=== PATIENT | male | born 1995 | race Two or more races ===

== ENCOUNTER 2023-10-15 11:21 | Outpatient (REF) | payer MEDICAID, SELFPAY ==
[2023-10-15 14:21] LABS: Alanine Aminotransferase 16 U/L (0-40); Albumin Level 4.6 g/dL (3.5-5.0); Alkaline Phosphatase 91 U/L (39-117); Anion Gap 15 (12-20); Aspartate Amino Transferase 13 U/L (5-37); Blood Urea Nitrogen 11 mg/dL (9-16); Calcium 10.1 mg/dL (8.4-10.2); Carbon Dioxide 26 mmol/L (22-29); Chloride 101 mmol/L (96-108); Estimated Glomerular Filt Rate > 60; Glucose Random 305 mg/dL (60-115); Sodium 138 mmol/L (135-145); Total Protein 7.4 g/dL (6.5-8.0)
[2023-10-15 14:27] LABS: Creatinine Urine 81.06 mg/dL; Microalbum/Creatinine Ratio Ur 20.9 ug/mg cr (<30)
[2023-10-16 08:16] LABS: HBc Num1 0.08 S/CO (0.00-0.79); Hepatitis B Core Antibody Nonreactive (Nonreactive)
[2023-10-16 17:28] LABS: Hepatitis B Surface Ab Qnt <5 mIU/mL (> OR = 10)
== END 2023-10-15 11:22 | disposition home or self-care (01) ==
LOC: HO.HHCL 11:21
PROVIDERS: Visit Provider Family Medicine
DX: E10.65 Type 1 diabetes mellitus with hyperglycemia (principal); Z01.84 Encounter for antibody response examination
CPT/HCPCS: 36415; 80053; 82043; 82570; 86317; 86704

== ENCOUNTER 2024-09-27 10:53 | Outpatient (REF) | payer MEDICAID, SELFPAY ==
[2024-09-27 11:42] LABS: Estimated Average Glucose 335 mg/dL; Hemoglobin A1C 510.3837 umol/L; Hemoglobin A1c % 13.3 % (<6.0); Total Hemoglobin (HGBA1C) 4174.2239 umol/L
--- OUTSIDE RECORDS SUMMARY | 2024-09-27 12:18 | XMS_ITS | Encounter Summary ---
Author Organization [employer] Address [address] [facility] [address] [place] [address] Care Team Providers Care Aerial Advertiser Name Role Phone Dulce Borja MD Primary Care Provider [phone] Lala Patel RN Unavailable [phone] Encounter Details Date Type Department Care Team (Late st Contact Info) Description 11/16/2023 Orders Only [facility] [address], [place] [phone] Dulce Borja MD [address] [place], [place] [phone] Social History Tobacco Use Types Packs/Day Years Used Date Smoking Tobacco: Every Day Cigarettes Smokeless Tobacco: Never Depression Answer Date Recorded Patient Health Questionnaire-9 Score 9 10/15/2023 Patient Health Questionnaire-9 Score 9 10/15/2023 Last PHQ-9: Questionnaire Data Not on file 0 10/15/2023 Housing Stability Answer Date Recorded What is your housing situation today? I do not have housing (Staying with others, in a hotel, in a penitentiary, living outside on the street, on a beach, in a car, or in a park 10/02/[address] you li ve. Do you have problems with any of the following? I am not sure 10/02/2023 Food Insecurity Answer Date Recorded Within the past 12 months, y ou worried that your food would run out before you got money to buy more: Sometimes True 2023 Within the past 12 months,th e food you bought just didn't last and you didn't have enough money to get more: Sometimes True 10/02/2023 Transportation Answer Date Recorded In the past 12 months, has l ack of transportation kept you from medical appts, meetings, work or from getting things needed for daily living? No 10/02/2023 Utilities Answer Date Recorded In the past 12 months, has t he electric, gas, oil or water company threatened to shut off services in your home? No 10/02/2023 Depression Answer Date Recorded Patient Health Questionnaire-2 Score 3 10/15/2023 Sex and Gender Information Value Date Recorded Sex Assigned at Male 10/15/2023 9:13 AM EDT Legal Sex Male 11:21 AM EDT Gender Identity Male 10/15/2023 9:13 AM EDT Sexual Orientation Straight 10/15/2023 9: 13 AM EDT documented as of this encounter Plan of Treatment Upcoming Encounters Date Type Department Care Team (Late st Contact Info) Description 12/06/2024 3:30 PM EDT Office Visit [facility] [address] [place] [address] Dulce Borja MD [address] [place] [address] documented as of this encounter Visit Diagnoses Not on filedocumented in this encounter Additional Health Concerns Assessment Noted Time PHQ-9 Depression Total Score: 9 10/15/19 24 11:38 AM EDT documented as of this encounter Care Teams Aerial Advertiser Relationship Specialty Start Date End Date Dulce Borja MD [address] [place] [address] PCP - General Family Medicine 10/15/23 Lala Patel RN [address] [place] [phone] Assistant Food Service DirectorTrimmer Buffing Wheel 02/02/24 documented as of this encounter
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
--- OUTSIDE RECORDS SUMMARY | 2024-09-27 12:18 | XMS_ITS ---
Author Organization [facility] Address [address], [place] [phone] Care Team Providers Care Dairy Department Manager Name Role Phone No, PCP Primary Care Provider Danitza Beth Unavailable [phone] REASON FOR VISIT Apply for [place] [employer] Insurance Encounters Encounter Location Date Provider Diagnosis [facility] [address] [place] [address] 09/22/2024 Danitza Torres Plan Of Treatment No Information Progress Notes * Jackson CHAVISDOB:[birth year] (29 yo M)Acc No.[id number]:09/22/2024 Case Management New Patient:?CHAVISJackson Provider:?Danitza Torres :1995???Age:29 Y???Sex:Male Jose e:09/22/2024 Address:[address] [place], [place] [id number] Pcp:PCP No Subjective: * Chief Complaints: * ???1. Apply for [employer] Insurance. Objective: Assessment: Plan: * Treatment: * Images: Billing Information: * Visit Code:? * Procedure Codes:? Care Plan Details* * Electronic signature of Catalina Lott on 09/27/2024 at 12:18 PM EDT Sign off status: Pending * Provider:Kala Torres Date:?09/22/2024 Generated for Gaetano barger/Ton/Parviz on:?09/27/2024 12:18 PM EDT
--- OUTSIDE RECORDS SUMMARY | 2024-09-27 12:18 | XMS_ITS | Encounter Summary ---
Author Organization [employer] Address [address] [facility] 7t [place] [address] Care Team Providers Care Vp Analysis Name Role Phone Dulce Borja MD Primary Care Provider [phone] Lala Patel RN Unavailable [phone] Reason for Referral * Consultation (Routine) - Pending Review Specialty Diagnoses / Procedures Referred By Contac t Referred To Contact Pharmacy Diagnoses Type 1 diabetes mellitus with hyperglycemia (CMS/HCC) Dulce Borja MD [address] [place] [address] Phone: tel: fax: Referral ID Status Reason Start Date Expiration Date Visits Requested Visits Authorized [id number] Pending Review Consult and Treat 02/17/2024 02/16/2025 6 6 Encounter Details Date Type Department Care Team (Late st Contact Info) Description 02/17/2024 Orders Only [facility] [address] [place] [phone] Dulce Borja MD [address], [place] [phone] Type 1 diabetes mellitus with hyperglycemia (CMS/HCC) (Primary Dx) Social History Tobacco Use Types Packs/Day Years Used Date Smoking Tobacco: Every Day Cigarettes Passive Smoke Exposure: Never Smokeless Tobacco: Never Alcohol Use Standard Drinks/Week Comments Never 0 (1 standard drink = 0.6 oz pur e alcohol) Depression Answer Date Recorded Patient Health Questionnaire-9 Score 0 01/25/2024 Patient Health Questionnaire-9 Score 0 01/25/2024 Last PHQ-9: Questionnaire Data Not on file 0 01/25/2024 Housing Stability Answer Date Recorded What is your housing situation today? I do not have housing (Staying with others, in a hotel, in a snf, living outside on the street, on a [...] Answer Date Recorded Patient Health Questionnaire-2 Score 0 01/25/2024 Sex and Gender Information Value Date Recorded Sex Assigned at Male 10/15/2023 9:13 AM EDT Legal Sex Male 11:21 AM EDT Gender Identity Male 10/15/2023 9:13 AM EDT Sexual Orientation Straight 10/15/2023 9: 13 AM EDT documented as of this encounter Plan of Treatment Upcoming Encounters Date Type Department Care Team (Late st Contact Info) Description 12/06/2024 3:30 PM EDT Office Visit [facility] [address] [place] [address] Dulce Borja MD [address] [place] [address] Scheduled Referrals Name Type Priority Associated Diagnoses Orde r Schedule Referral to Pharmacy CDTM Outpatient Referral Routine Type 1 diabetes mellitus with hyperglycemia (CMS/HCC) Ordered: 02/17/2024 documented as of this encounter Visit Diagnoses Diagnosis Type 1 diabetes mellitus with hyperglycemia (CMS/HCC)- Primary documented in this encounter Additional Health Concerns Assessment Noted Time PHQ-9 Depression Total Score: 0 01/25/20 4:07 PM EDT documented as of this encounter Care Teams Vp Analysis Relationship Specialty Start Date End Date Dulce Borja MD [address] [place] [address] PCP - General Family Medicine 10/15/23 Lala Patel RN [address] [place] [phone] Manager FrontContent Architect 02/02/24 documented as of this encounter
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
--- OUTSIDE RECORDS SUMMARY | 2024-09-27 12:18 | XMS_ITS | Encounter Summary ---
Author Organization [employer] Address [address] [facility] 7t [place] [address] Care Team Providers Care Regrinder Operator Name Role Phone Dulce Borja MD Primary Care Provider [phone] Lala Patel RN Unavailable [phone] Reason for Visit * Reason Onset Date Comments Prior Authorization 11/05/2023 Encounter Details Date Type Department Care Team (Late st Contact Info) Description 11/05/2023 Telephone [facility] [address] [place], [place] [phone] Dulce Borja MD [address] [place], [place] [phone] Prior Authorization Social History Tobacco Use Types Packs/Day Years [...] AM EDT documented as of this encounter Miscellaneous Notes * Telephone Encounter - Ila Hawkins - 11/05/2023 3:52 PM EDT Please see message below and advise if agree with PA. Thank you * Telephone Encounter - Carloz Hua - 11/05/2023 10:33 AM EDT Tc from the patients sister calling to report the medication oxyCODONE (Oxaydo) 5 MG immediate release tablet requires a PA documented in this encounter Plan of Treatment Upcoming Encounters Date Type Department Care Team (Late st Contact Info) Description 12/06/2024 3:30 PM EDT Office Visit [facility] [address] [place] [address] Dulce Borja MD [address] [place] [address] documented as of this encounter Visit Diagnoses Not on filedocumented in this encounter Additional Health Concerns Assessment Noted Time PHQ-9 Depression Total Score: 9 10/15/19 24 11:38 AM EDT documented as of this encounter Care Teams Regrinder Operator Relationship Specialty Start Date End Date Dulce Borja MD [address] [place] [address] PCP - General Family Medicine 10/15/23 Lala Patel RN [address] [place] [address] Can RunnerWet Washer Machine 02/02/24 documented as of this encounter
--- OUTSIDE RECORDS SUMMARY | 2024-09-27 12:18 | XMS_ITS | Encounter Summary ---
Author Organization [employer] Address [address] [facility] 7t [place] [address] Care Team Providers Care New Media Strategist Name Role Phone Dulce Borja MD Primary Care Provider [phone] Lala Patel RN Unavailable [phone] Reason for Visit * Reason Comments Med Refill Encounter Details Date Type Department Care Team ([facility] st Contact Info) Description 08/09/2024 Refill [facility] [address] [place], [place] [phone] Jimmie Peter MD [address] [place], [place] [phone] Alcohol use disorder, severe, dependence (CMS/HCC) Social History Tobacco Use Types Packs/Day Years Used Date Smoking Tobacco: Every Day Cigarettes Passive Smoke Exposure: Never Smokeless Tobacco: Never Alcohol Use Standard Drinks/Week Comments Yes 0 [...] with others, in a hotel, in a fpc, living outside on the street, on a [...] Description 12/06/2024 3:30 PM EDT Office Visit [facility] [address] [place] [address] Dulce Borja MD [address] [place] [address] documented as of this encounter Visit Diagnoses Diagnosis Alcohol use disorder, severe, dependence (CMS/HCC) documented in this encounter Additional Health Concerns Assessment Noted Time PHQ-9 Depression Total Score: 4 05/16/20 24 4:05 PM EST documented as of this encounter Care Teams New Media Strategist Relationship Specialty Start Date End Date Dulce Borja MD [address] [place] [address] PCP - General Family Medicine 10/15/23 Lala Patel RN [address] [place] [address] Business Liaison ManagerDirect Support Professional Caregiver 02/02/24 documented as of this encounter
--- OUTSIDE RECORDS SUMMARY | 2024-09-27 12:18 | XMS_ITS | Patient Health Record ---
Author Organization [facility] Address [address] [place], [place] [phone] Care Team Providers Care All Terrain Vehicle Racer Name Role Phone No, PCP Primary Care Provider Danitza Beth Unavailable [phone] Reason For Referral No Information Encounters Encounter Location Date Provider Diagnosis [facility] [address] [place] [address] 09/22/2024 Danitza Torres Plan Of Treatment No Information Insurance Providers Payer Name Payer Address Payer Phone Subscriber Number Group Number Insured Name Patient Relationship to Insured Coverage Start Date Coverage End Date Insurance Pending [address] [place] [phone] Jackson Michaels Self - patient is the insured
--- OUTSIDE RECORDS SUMMARY | 2024-09-27 12:18 | XMS_ITS | Clinical Summary ---
Author Organization [facility] Address [address] [place] [address] Care Team Providers Care Mineral Technologist Name Role Phone Unavailable Primary Care Provider Unavailabl e Social History Tobacco Use Types Packs/Day Years Used Date Smoking Tobacco: Never Assessed Sex and Gender Information Value Date Recorded Sex Assigned at Not on file Legal Sex Male 6:15 AM EST Gender Identity Not on file Sexual Orientation Not on file Plan of Treatment Health Maintenance Due Date Last Done Comments DTaP,Tdap,and Td Vaccines (1 - Tdap) 2012 Hepatitis B Vaccines (1 of 3 - 19+ 3-dose series) 2012 COVID-19 Vaccine ( - 2023-2 5 season) 2024 Depression Screening 02/25/2024 HIV Screening 02/25/2024 Hepatitis C Screening 02/25/2024 Social Influencers of Health Screening 02/25/2024 Influenza Vaccine (Season Ended) 2025 HIB Vaccines Aged Out No longer eligi ble based on patient's age to complete this topic HPV Vaccines Aged Out No longer eligi ble based on patient's age to complete this topic Hepatitis A Vaccines Aged Out No long er eligible based on patient's age to complete this topic IPV Vaccines Aged Out No longer eligi ble based on patient's age to complete this topic MMR Vaccines Aged Out No longer eligi ble based on patient's age to complete this topic Meningococcal ACWY Vaccine Aged Out N o longer eligible based on patient's age to complete this topic Meningococcal B Vaccine Aged Out No l onger eligible based on patient's age to complete this topic Pneumococcal Vaccine: Pediat rics (0 to 5 Years) and At-Risk Patients (6 to 64 Years) Aged Out No longer eligible b ased on patient's age to complete this topic RSV Immunization Patients Un carli 20 months Aged Out No longer eligible b ased on patient's age to complete this topic Varicella Vaccines Aged Out No longer eligible based on patient's age to complete this topic
--- OUTSIDE RECORDS SUMMARY | 2024-09-27 12:18 | XMS_ITS | Encounter Summary ---
Author Organization [employer] Address [address] [facility] [address] [place] [address] Care Team Providers Care Hyster Machine Operator Name Role Phone Dulce Borja MD Primary Care Provider [phone] Lala Patel RN Unavailable [phone] Encounter Details Date Type Department Care Team (Late st Contact Info) Description 06/30/2024 Orders Only [facility] MEDICINE [address] [place], [place] [phone] Dulce Borja MD [address] [place], [place] [phone] Chronic pain of both hips (Primary Dx) Social History Tobacco Use Types [...] with others, in a hotel, in a halfway, living outside on the street, on a [...] Description 12/06/2024 3:30 PM EDT Office Visit [facility] MEDICINE [address] [place] [address] Dulce Borja MD [address] [place] [address] documented as of this encounter Visit Diagnoses Diagnosis Chronic pain of both hips- Primary documented in this encounter Additional Health Concerns Assessment Noted Time PHQ-9 Depression Total Score: 4 05/16/20 24 4:05 PM EST documented as of this encounter Care Teams Hyster Machine Operator Relationship Specialty Start Date End Date Dulce Borja MD [address] [place] [address] PCP - General Family Medicine 10/15/23 Lala Patel RN [address] [place] [address] Assembly HandJunior Mechanical Engineer 02/02/24 documented as of this encounter
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
[2024-09-27 12:35] LABS: Cholesterol 210 mg/dL (<200); HDL Cholesterol 59 mg/dL (>40); LDL Cholesterol Calculated 118 mg/dL (<100); Triglycerides 169 mg/dL (<150)
[2024-09-27 12:46] LABS: HBsAGNum1 0.24 S/CO (0.00-0.99); HIV AB/AG Nonreactive (Nonreactive); HIV Num 1 0.05 S/CO (0.00-0.99); Hepatitis B Surface Antigen Negative (Negative); ~HepC Num1 0.06 S/CO (0.00-0.79); ~Hepatitis C Antibody Nonreactive (Nonreactive)
[2024-09-27 12:48] LABS: Syphilis Screen Nonreactive (Nonreactive)
[2024-09-27 13:15] LABS: Reflex LDLD? No
== END 2024-09-27 10:54 | disposition home or self-care (01) ==
LOC: HO.HHCL 10:53
PROVIDERS: Visit Provider Family Medicine
DX: E10.65 Type 1 diabetes mellitus with hyperglycemia (principal); Z11.3 Encounter for screening for infections with a predominantly sexual mode of transmission
CPT/HCPCS: 36415; 80061; 83036; 86780; 86803; 87340; 87389

== ENCOUNTER 2024-10-05 10:24 | Outpatient (REF) | payer MEDICAID, SELFPAY ==
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
--- OUTSIDE RECORDS SUMMARY | 2024-10-05 11:54 | XMS_ITS | Patient Health Record ---
Author Organization [facility] Address [address] [place], [place] [phone] Care Team Providers Care Double Needle Stitcher Name Role Phone [facility] Unavailable Danitza Torres Unavailable [phone] Reason For Referral No Information Encounters Encounter Location Date Provider Diagnosis [facility] [address] [place] [address] 09/22/2024 Danitza Torres Plan Of Treatment No Information Insurance Providers Payer Name Payer Address Payer Phone Subscriber Number Group Number Insured Name Patient Relationship to Insured Coverage Start Date Coverage End Date [place] Medicaid C3 [address] [place], [place] [id number] Jackson Michaels Self - patient is the insured 5
--- OUTSIDE RECORDS SUMMARY | 2024-10-05 11:54 | XMS_ITS | Encounter Summary ---
Author Organization [employer] Address [address] [facility] 7 [place] [address] Care Team Providers Care Customer Support Advisor Name Role Phone Dulce Borja MD Primary Care Provider Lala Patel RN Unavailable [phone] Reason for Visit * Reason Comments Med Refill Encounter Details Date Type Department Care Team (Late st Contact Info) Description 08/09/2024 Refill [facility] MEDICINE [address] [place], [place] [phone] Jimmie Peter MD [address] [place], [place] [phone] Alcohol use disorder, severe, dependence (CMS/HCC) Social [...] Description 12/06/2024 3:30 PM EDT Office Visit [facility] MEDICINE [address] [place] [address] Dulce Borja MD [address] [place] [address] documented as of this encounter Visit Diagnoses Diagnosis Alcohol use disorder, severe, dependence (CMS/HCC) documented in this encounter Additional Health Concerns Assessment Noted Time PHQ-9 Depression Total Score: 4 05/16/20 24 4:05 PM EST documented as of this encounter Care Teams Customer Support Advisor Relationship Specialty Start Date End Date Dulce Borja MD [address] [place] [address] PCP - General Family Medicine 10/15/23 Lala Patel RN [address] [place] [address] Data KeyerPower Operator 02/02/24 documented as of this encounter
--- OUTSIDE RECORDS SUMMARY | 2024-10-05 11:54 | XMS_ITS | Encounter Summary ---
Author Organization [employer] Address [address] [facility] 7t [place] [address] Care Team Providers Care Assistant Store Manager Sales Name Role Phone Dulce Borja MD Primary Care Provider Lala Patel RN Unavailable [phone] Encounter Details Date Type Department Care Team (Late st Contact Info) Description 11/16/2023 Orders Only [facility] MEDICINE [address] [place], [place] [phone] Dulce Borja MD [address] [place], [place] [phone] Social History Tobacco Use Types Packs/Day Years [...] with others, in a hotel, in a alf, living outside on the street, on a [...] Description 12/06/2024 3:30 PM EDT Office Visit [facility]ICINE [address] [place] [phone] Dulce Borja MD [address] [place] [address] documented as of this encounter Visit Diagnoses Not on filedocumented in this encounter Additional Health Concerns Assessment Noted Time PHQ-9 Depression Total Score: 9 10/15/19 24 11:38 AM EDT documented as of this encounter Care Teams Assistant Store Manager Sales Relationship Specialty Start Date End Date Dulce Borja MD [address] [place] [address] PCP - General Family Medicine 10/15/23 Lala Patel RN [address] [place] [address] Physical Security EngineerClinical Data Programmer 02/02/24 documented as of this encounter
--- OUTSIDE RECORDS SUMMARY | 2024-10-05 11:54 | XMS_ITS | Encounter Summary ---
Author Organization [employer] Address [address] [facility] 7 [place] [address] Care Team Providers Care Talent Management Manager Name Role Phone Dulce Borja MD Primary Care Provider [phone] Lala Patel RN Unavailable [phone] Reason for Visit * Reason Onset Date Comments Prior Authorization 11/05/2023 Encounter Details Date Type Department Care Team (Late st Contact Info) Description 11/05/2023 Telephone [facility] MEDICINE [address] [place], [place] [phone] Dulce Borja MD [address] [place], [place] [phone] Prior Authorization Social History Tobacco Use Types [...] with others, in a hotel, in a assisted, living outside on the street, on a [...] Description 12/06/2024 3:30 PM EDT Office Visit [facility] MEDICINE [address] [place] [address] Dulce Borja MD [address] [place] [address] documented as of this encounter Visit Diagnoses Not on filedocumented in this encounter Additional Health Concerns Assessment Noted Time PHQ-9 Depression Total Score: 9 10/15/19 24 11:38 AM EDT documented as of this encounter Care Teams Talent Management Manager Relationship Specialty Start Date End Date Dulce Borja MD [address] [place] [address] PCP - General Family Medicine 10/15/23 Lala Patel RN [address] [place] [address] District Commercial SuperintendentExhaust Emissions Inspector 02/02/24 documented as of this encounter
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
--- OUTSIDE RECORDS SUMMARY | 2024-10-05 11:54 | XMS_ITS | Clinical Summary ---
Author Organization [facility] [employer] [facility] ity Address [address] [place] [address] Care Team Providers Care Poultry Farmer Meat Name Role Phone Unavailable Primary Care Provider [...]
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
--- OUTSIDE RECORDS SUMMARY | 2024-10-05 11:54 | XMS_ITS | Encounter Summary ---
Author Organization [facility] Address [address] [place] [address] Care Team Providers Care Executive Producer Name Role Phone Dulce Borja MD Primary Care Provider [phone] Lala Patel RN Unavailable [phone] Reason for Referral * Consultation (Routine) - Closed Specialty Diagnoses / Procedures Referred By Contac t Referred To Contact Pharmacy Diagnoses Type 1 diabetes mellitus with hyperglycemia (CMS/HCC) Dulce Borja MD [address] [place] [address] Phone: tel: fax: Referral ID Status Reason Start Date Expiration Date V isits Requested Visits Authorized [id number] Closed Consult and Treat 02/17/2024 02/16/2025 6 6 Encounter Details Date Type Department Care Team (Late st Contact Info) Description 02/17/2024 Orders Only [facility] [address] [place], [place] [phone] Dulce Borja MD [address], [place] [phone] Type 1 diabetes mellitus with hyperglycemia (CMS/HCC) [...] with others, in a hotel, in a residential, living outside on the street, on a [...] Description 12/06/2024 3:30 PM EDT Office Visit [facility] [address] [place] [address] Dulce Borja MD [address] [place] [address] Scheduled Referrals Name Type Priority Associated Diagnoses Orde r Schedule Referral to Pharmacy CDTM Outpatient Referral Routine Type 1 diabetes mellitus with hyperglycemia (CMS/HCC) Ordered: 02/17/2024 documented as of this encounter Visit Diagnoses Diagnosis Type 1 diabetes mellitus with hyperglycemia (CMS/HCC)- Primary documented in this encounter Additional Health Concerns Assessment Noted Time PHQ-9 Depression Total Score: 0 01/25/20 24 4:07 PM EDT documented as of this encounter Care Teams Executive Producer Relationship Specialty Start Date End Date Dulce Borja MD [address] [place] [address] PCP - General Family Medicine 10/15/23 Lala Patel RN [address] [place] [phone] Second RiggerReception Manager 02/02/24 documented as of this encounter
--- OUTSIDE RECORDS SUMMARY | 2024-10-05 11:55 | XMS_ITS | Encounter Summary ---
Author Organization [facility] Address [address] [place] [address] Care Team Providers Care Rac Specialist Name Role Phone Dulce Borja MD Primary Care Provider [phone] Lala Patel RN Unavailable [phone] Reason for Visit * Reason Onset Date Comments Appointment Request 10/03/2024 Encounter Details Date Type Department Care Team (Late st Contact Info) Description 10/03/2024 Telephone [facility] [address] [place] [address] Rosario Jarvis RN Appointment Request Social History Tobacco Use Types Packs/Day Years [...] with others, in a hotel, in a skilled nursing, living outside on the street, on a [...] encounter Miscellaneous Notes * Telephone Encounter - Rosario Jarvis RN - 10/03/2024 3:04 PM EDT Telephone call returned to patient in regards to below message. Patient got sensor and knows how touse it and does not want an appointment, patient state he knows how it works and it has been reallygood. Patient verbalized understanding and denied having any further questions or concerns at this time. Patient to follow up as needed. * Telephone Encounter - Rosario Jarvis RN - 10/03/2024 3:04 PM EDT ----- Message from Dulce Borja MD sent at 10/02/2024 5:51 PM EDT ----- Please check if he was able to get CGM and schedule CGM teaching appointment, if patient needs. documented in this encounter Plan of Treatment Upcoming Encounters Date Type Department Care Team (Late st Contact Info) Description 12/06/2024 3:30 PM EDT Office Visit [facility] [address] [place] [address] Dulce Borja MD [address] [place] [address] documented as of this encounter Visit Diagnoses Not on filedocumented in this encounter Additional Health Concerns Assessment Noted Time PHQ-9 Depression Total Score: 4 05/16/20 24 4:05 PM EST documented as of this encounter Care Teams Rac Specialist Relationship Specialty Start Date End Date Dulce Borja MD [address] [place] [address] PCP - General Family Medicine 10/15/23 Lala Patel RN [address] [place] [phone] Band Scroll Saw OperatorPhotographic Reproduction Technician 02/02/24 documented as of this encounter
--- OUTSIDE RECORDS SUMMARY | 2024-10-05 11:55 | XMS_ITS | Encounter Summary ---
Author Organization [facility] [employer] Address [address] [place] [address] Care Team Providers Care Sterilization Tech Name Role Phone Dulce Borja MD Primary Care Provider [phone] Laal Patel RN Unavailable [phone] Encounter Details Date Type Department Care Team (Late st Contact Info) Description 06/30/2024 Orders Only [facility] [address] [place], [place] [phone] Dulce Borja MD [address] [place], [place] [phone] Chronic pain of both hips (Primary Dx) [...] with others, in a hotel, in a senior living, living outside on the street, on a [...] PM EDT Office Visit [facility] [address] [place] [phone] Dulce Borja MD [address] [place] [phone] documented as of this encounter Visit Diagnoses Diagnosis Chronic pain of both hips- Primary documented in this encounter Additional Health Concerns Assessment Noted Time PHQ-9 Depression Total Score: 4 05/16/20 24 4:05 PM EST documented as of this encounter Care Teams Sterilization Tech Relationship Specialty Start Date End Date Dulce Borja MD [address] [place] [id number] PCP - General Family Medicine 10/15/23 Lala Patel RN [address] [place] [phone] Vp Product MarketingScience Tutor 02/02/24 documented as of this encounter
== END 2024-10-05 10:25 | disposition home or self-care (01) ==
LOC: HO.HHCX 10:24
PROVIDERS: Visit Provider Family Medicine
DX: M54.50 Low back pain, unspecified (principal); G89.29 Other chronic pain; R07.81 Pleurodynia; R09.1 Pleurisy
CPT/HCPCS: 71101; 72100

== ENCOUNTER → 2024-10-05 10:25 | Outpatient (BNV) | payer MEDICAID, SELFPAY | PROVIDERS: Visit Provider Radiology Diagnostic Radiology | DX: R07.89 Other chest pain (principal); M95.4 Acquired deformity of chest and rib; M54.50 Low back pain, unspecified | CPT/HCPCS: 71101; 72100 ==

== ENCOUNTER 2024-11-08 12:10 | Outpatient (AMB) | payer MEDICAID, SELFPAY ==
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
[2024-11-08 12:27] VITALS: BP 120/64; PULSE 95; O2SAT 98; BMI 23.2
[2024-11-08 12:39] LABS: Glucose, Whole Blood 389 mg/dL (60-115)
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
== END 2024-11-08 13:03 | disposition home or self-care (01) ==
LOC: HO.ENCR 12:11
PROVIDERS: PCP Family Medicine; Visit Provider Nurse Practitioner Adult Health
DX: E10.9 Type 1 diabetes mellitus without complications (principal)
CPT/HCPCS: 99204

== ENCOUNTER → 2024-11-08 12:10 | Outpatient (BNVA) | payer MEDICAID, SELFPAY | PROVIDERS: Visit Provider Nurse Practitioner Adult Health | DX: E10.9 Type 1 diabetes mellitus without complications (principal); F32.A Depression, unspecified; F41.9 Anxiety disorder, unspecified; F12.90 Cannabis use, unspecified, uncomplicated | CPT/HCPCS: 82947; 99212 ==

== ENCOUNTER 2024-11-23 08:09 | Outpatient (AMB) | payer MEDICAID, SELFPAY ==
--- OUTSIDE RECORDS SUMMARY | 2024-11-23 08:12 | XMS_ITS | Clinical Summary ---
[facility] Organization [facility] ity Address [address] [place] [address] Care Team Providers Care Leather Finisher Name Role Phone Unavailable Primary Care Provider [...] Influencers of Health Screening 02/25/2024 Influenza Vaccine (#1) 2025 HIB Vaccines Aged Out No longer [...] 5 Years) and At-Risk Patients (6 to 49 Years) Aged Out No longer eligible b ased on patient's age to complete this topic RSV Immunization Patients Un carli 20 months Aged Out No longer eligible b ased on patient's age to complete this topic Varicella Vaccines Aged Out No longer eligible based on patient's age to complete this topic
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
--- OUTSIDE RECORDS SUMMARY | 2024-11-23 08:12 | XMS_ITS | Patient Health Record ---
Author Organization [facility] Address [address], [place] [id number] Care Team Providers Care Adult Manager Name Role Phone [facility] Unavailable Danitza Torres Unavailable [phone] Reason For Referral No Information Encounters Encounter Location Date Provider Diagnosis [facility] [address] [place] [address] 09/22/2024 Danitza Torres Plan Of Treatment No Information Insurance Providers Payer Name Payer Address Payer Phone Subscriber Number Group Number Insured Name Patient Relationship to Insured Coverage Start Date Coverage End Date [place] Medicaid C3 [address] [place], [place] [id number] Jackson Michaels Self - patient is the insured 5
--- NOTE | 2024-11-23 09:11 | MHC.AMDMED ---
Intake Intake Visit Reasons: T1DM Emergency Medical Tech Required: No Accompanied by: Self / Same As Patient Allergies No Known Allergies Allergy (Verified 11/08/24 12:32) HPI Comprehensive Diabetes Asmnt Most Recent Diabetes Results: Microalb/Creat Ratio, (<30) 20.9 ug/mg cr 10/15/23 Cholesterol, (<200) 210 mg/dL H 09/27/24 HDL Cholesterol, (>40) 59 mg/dL 09/27/24 Triglycerides, (<150) 169 mg/dL H 09/27/24 Creatinine, (0.5-1.4) 0.85 mg/dL 10/15/23 BUN, (9-16) 11 mg/dL 10/15/23 Sodium, (135-145) 138 mmol/L 10/15/23 Potassium, (3.3-5.1) 4.0 mmol/L 10/15/23 Chloride, (96-108) 101 mmol/L 10/15/23 Carbon Dioxide, (22-29) 26 mmol/L 10/15/23 Calcium, (8.4-10.2) 10.1 mg/dL 10/15/23 AST, (5-37) 13 U/L 10/15/23 ALT, (0-40) 16 U/L 10/15/23 Total Protein, (6.5-8.0) 7.4 g/dL 10/15/23 Albumin, (3.5-5.0) 4.6 g/dL 10/15/23 PFSH Medical History (Updated 11/08/24 @ 13:15 by Dera Flores NP) Type 1 diabetes Hx of fracture of femur History of anxiety Hx of fracture of pelvis History of ADHD History of chronic pain Hx of type 1 diabetes mellitus Surgical History History of surgery Family History Father No problems noted. Mother No problems noted. Assessment & Plan Assessment & Plan (1) Type 1 diabetes: Code(s): E10.9 - Type 1 diabetes mellitus without complications Plan: Diabetes self-management education and support participation record Assessment/scale: 1= needs instructed? 2= needs review? 3= comprehend keep point? 4= demonstrates understanding/ competent? NC= Not Covered Topics Learning Objective: Initial visit Initial or post srvc Initial or post srvc Initial or post srvc Initial or post srvc Initial or post srvc Post srvc Comments Pre Edu-assessment/plan Outcome or reassess Outcome or reassess Outcome or reassess Outcome or reassess Outcome or reassess Outcome or reassess Diabetes pathophysiology 1 Healthy eating 1 Being active 1 Taking medication 1 Monitoring glucose 1 Acute complication 2 Chronic complicated 1 Lifestyle and healthy coping 1 Diabetes distress in support 1 ?Diabetes pathophysiology: ?Defined diabetes med identify own type of diabetes; list 3 options for treating diabetes Healthy eating: ?Described effect of type, amount and ?timing of food on blood glucose; list 3 methods for planning meal Being active: ?State effect of exercise on blood glucose level Taking medication: ?State effect of diabetes medications on diabetes; name diabetes medications taking, action and side effects Monitoring glucose: ?Identify recommended blood glucose targets and personal target Acute complication: ?List symptoms and treatment of hyper and hypoglycemia, DKA, sick day guidelines and guidelines for severe weather or situations of crisis and diabetes supply manage Chronic complication: ?To find the relationship of blood glucose levels to long-term complications of diabetes in screening and preventative measures Lifestyle and healthy coping: ?Described lifestyle and healthy coping strategies to rule out diabetes self-management Diabetes to stress and support: ?Recognize Diabetes to stress and be able to identified support options Learning objectives: The patient was provided with verbal and written education on the following topics as outlined below. The patient met all learning objectives and was able to verbalize understanding and provide teach back of education topics discussed . The patient was provided with the opportunity to ask questions and all questions were answered. Patient Assessment Assess patient education level/literacy/barriers, patient originally diagnosed with type 2 diabetes, but since has been diagnosed with type 1 diabetes. Patient lives with his , participates in meal planning and food shopping Patient's A1c on 09/27/2024 13.3% Patient is currently taking Tresiba 30 units daily Lispro before meals 2 to 3 times a day Patient questions/concerns, patient reports he is interested in learning how to carb count. Calculated insulin to carb ratio of 1-9 Correction factor 1-25 Target goal for glucose: 140 mg/dL What is Diabetes? Pathophysiology How the body produces and uses insulin Identify type of DM Risk factors Signs of Diabetes Brief overview of Diabetes Management Monitoring blood sugar Following a meal plan Regular exercise Maintaining a healthy weight Taking medication as needed Members of the care team (PCP, RN, MA, RD, CDE, postal service clerk) Blood glucose monitoring When/how often to test Target blood sugar ranges Patient brought Atiya 3 +sensor to today's visit Downloaded in set up, Atiya 3 rosy on patient's smart phone User name: Patient is e-mail Password:[email or web address] Sensor placed on the back of left arm Patient left visit with sensor in warmup Reviewed how to interpret trend arrows Discussed lag time between finger stick and sensor data.? Instructed patient the importance of having blood glucometer for backup testing if needed Reviewed delay of CGM from fingersticks Reminded Pt that if symptoms do not match sensor still needs to check fingersticks. Introduction to Nutrition Importance of healthy diet in managing DM Diet is personalized to individual preference Review patient?s regular diet/food preferences Who prepares meals/does food shopping/ Dining out?/ Barriers? How diet effects glucose Eating 3 balanced meals a day with small, healthy snacks between meals Review food groups Carbohydrates: What is a carbohydrate/Which food/food groups are considered carbohydrates Effect of carbohydrates on blood glucose Portion sizes Reading food labels Basic carb counting, setup Boluscalc rosy on Pt's iPhone Plate method Meal planning Recommendations: Follow plate method, consistent carbs and read nutritional labels. Smart Goal: Patient will identify foods in current meal plan that contain carbohydrate Educational Materials: The patient was provided with the following written educational materials: Planning Healthy Meals Handout Patient Response to instructions: Comprehension of Instructions: Fair Readiness to make changes: Contemplation How confident they feel about making changes: Fair Portions of this note were created using voice recognition software, please excuse any words or phrases that may have been misinterpreted. Patient Instructions: Include regular daily activity. ADA recommends 30 minutes of exercise 5 days a week. Weight loss talk to PCP or Vice President Of Academic Affairs before starting new plan. Test blood sugar as directed; Fasting and 2hpp largest meal. Watch trends in results. Utilize results and to assess how food, physical activity and medications affect blood sugar results. Bring glucometer or CGM to next visit. Be knowledgeable about diabetes medication, its action, side effects, efficacy, toxicity, prescribed dosage, appropriate timing and frequency of administration, effect of missed and delayed doses and instructions for storage, travel and safety. Problem solving techniques to monitor hypo/hyperglycemia episodes and treatments. Reduce risk reduction behaviors, smoking cessation, regular eye, foot and dental examinations. Coding Level of Care Code Est Pt Level 1 (78939) Diagnoses Type 1 diabetes E10.9
== END 2024-11-23 09:13 | disposition home or self-care (01) ==
LOC: HO.ENCR 08:09
PROVIDERS: Visit Provider Registered Nurse Diabetes Educator
DX: E10.9 Type 1 diabetes mellitus without complications (principal)

== ENCOUNTER → 2024-11-23 08:09 | Outpatient (BNVA) | payer MEDICAID, SELFPAY | PROVIDERS: Visit Provider Registered Nurse Diabetes Educator | DX: E10.9 Type 1 diabetes mellitus without complications (principal) | CPT/HCPCS: 99211 ==

== ENCOUNTER 2025-01-31 16:06 | Outpatient (AMB) | payer MEDICAID, SELFPAY ==
--- NOTE | 2025-01-31 16:46 | A.OFFVIS_ITS ---
Intake Intake Visit Reasons: 60 mins Food Processing Scientist Required: No Accompanied by: Self / Same As Patient Allergies No Known Allergies Allergy (Verified 11/08/24 12:32) HPI Comprehensive Diabetes Asmnt Most Recent Diabetes Results: 2 Microalb/Creat Ratio, (<30) 20.9 ug/mg cr 10/15/23 Cholesterol, (<200) 210 mg/dL H 09/27/24 HDL Cholesterol, (>40) 59 mg/dL 09/27/24 Triglycerides, (<150) 169 mg/dL H 09/27/24 Creatinine, (0.5-1.4) 0.85 mg/dL 10/15/23 BUN, (9-16) 11 mg/dL 10/15/23 Sodium, (135-145) 138 mmol/L 10/15/23 Potassium, (3.3-5.1) 4.0 mmol/L 10/15/23 Chloride, (96-108) 101 mmol/L 10/15/23 Carbon Dioxide, (22-29) 26 mmol/L 10/15/23 Calcium, (8.4-10.2) 10.1 mg/dL 10/15/23 AST, (5-37) 13 U/L 10/15/23 ALT, (0-40) 16 U/L 10/15/23 Total Protein, (6.5-8.0) 7.4 g/dL 10/15/23 Albumin, (3.5-5.0) 4.6 g/dL 10/15/23 PFSH Medical History (Updated 11/08/24 @ 13:15 by Drea Flores NP) Type 1 diabetes Hx of fracture of femur History of anxiety Hx of fracture of pelvis History of ADHD History of chronic pain Hx of type 1 diabetes mellitus Surgical History History of surgery Family History Father No problems noted. Mother No problems noted. Assessment & Plan Assessment & Plan (1) Type 1 diabetes: Code(s): E10.9 - Type 1 diabetes mellitus without complications Plan: Diabetes self-management education and support participation record Assessment/scale: 1= needs instructed? 2= needs review? 3= comprehend keep point? 4= demonstrates understanding/ competent? NC= Not Covered Topics Learning Objective: Initial visit Initial or post srvc Initial or post srvc Initial or post srvc Initial or post srvc Initial or post srvc Post srvc Comments Pre Edu-assessment/plan Outcome or reassess O utcome or reassess Outcome or reassess Outcome or reassess Outcome or reassess Outcome or reassess Diabetes pathophysiology 1 3 Healthy eating 1 2 Being active 1 3 Taking medication 1 2 Monitoring glucose 1 3 Acute complication 2 3 Chronic complicated 1 2 Lifestyle and healthy coping 1 Diabetes distress in support 1 ?Diabetes pathophysiology: ?Defined diabetes med identify own type of diabetes; list 3 options for treating diabetes Healthy eating: ?Described effect of type, amount and ?timing of food on blood glucose; list 3 methods for planning meal Being active: ?State effect of exercise on blood glucose level Taking medication: ?State effect of diabetes medications on diabetes; name diabetes medications taking, action and side effects Monitoring glucose: ?Identify recommended blood glucose targets and personal target Acute complication: ?List symptoms and treatment of hyper and hypoglycemia, DKA, sick day guidelines and guidelines for severe weather or situations of crisis and diabetes supply manage Chronic complication: ?To find the relationship of blood glucose levels to long- term complications of diabetes in screening and preventative measures Lifestyle and healthy coping: ?Described lifestyle and healthy coping strategies to rule out diabetes self-management Diabetes to stress and support: ?Recognize Diabetes to stress and be able to identified support options Pump Assessment: Type of DM: Type 1 Dx at age: 20 y/o Current Insulin Rx: MDI Patient takes insulin as prescribed: 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 checks BG Atiya 3+ with phone rosy Downloaded meter today-yes Patient? reports glycemic control as: poor Most recent Hgb A1C: 13.3% in September 2024, Pt has upcoming appt with Dr. Parsons will be due for next A1c Frequency of low BG: rarely Low BG treatment: Fruit juice Frequency of high BG: daily Does patient check Ketones? no, will reveiw with Pt at next education visit Has pt been on a pump in the past? no Reviewed insulin pump basics today with Patient. Explained pros and cons of insulin pumps. Showed pt various pumps, infusion sets, and cgms currently available. Reviewed need to wear pump 24/ and need to change infusion set every 3 days. Also stressed importance of frequent BG checks, 4x daily minimum or use pump that is integrated with CGM.? Patient demonstrated motivation for continued insulin pump education and understands the need to complete education prior to starting insulin pump for best outcome. Pt is interested in the OmniPod 5, he will need to transition to new sensor Reviewed the following: Insulin/Injectables (If applicable) * Storage/care of insulin?? * Injection sites? * Site rotation? * Onset, peak, duration * Drawing up insulin? * Injecting insulin/other injectables? * Sharps disposalContinuous blood glucose monitoring (if applicable) Hypoglycemia and Hyperglycemia * Signs and symptoms? * Causes?? * Treatment? * Preventing hypoglycemia? * When to seek medical attention Target Goals: * Blood glucose targets and how you feel when your blood glucose is in and out of your target ranges. * Monitoring and knowing your A1C. * What can make blood glucose go up and down and preventing high and low blood glucose. * Review of blood sugar targets in expected goal range and outside of expected goal range. * Problem solving and preventing hyper/hypoglycemia. * Sick day management of diabetes. * Using blood sugar results in decision making process in managing diabetes. ?Patient was receptive to information provided and participated in the discussion. Asked?appropriate questions and demonstrated good understanding of the topics discussed.? ? Carb Counting Basic Reviewed the basic principles of carbohydrate counting.? Insulin to carb ratio, and insulin sensitivity factor calculated based on rule of 450 for insulin to carb ratio, and rule of 1500 for insulin sensitivity factor. Instructed patient on the importance of accurate calculation of the amount of carbs per meal for optimal glucose control Reviewed how to calculate mealtime bolus with insulin to carb ratio Reviewed how to calculate correction dose with insulin sensitivity factor Patient's TDD estimate 50 units Insulin to Carbohydrate ratio:1:9 Correction factor:1:30 Correcting to 140 mg/dL Patient given healthy plate handout, for resource for carbohydrate counting Encourage patient to fill out food logs, estimating carbohydrates at meals, noting glucose number prior to meal, and how many units of insulin taken prior to meals Pt able to calculated needed insulin based on estimated carbohydrate content Instructed patient that there may need to be adjustment to insulin to carb ratio and sensitivity factor based on blood glucose trends. Portions of this note were created using voice recognition software, please excuse any words or phrases that may have been misinterpreted. Patient Instructions: Return carb counting work sheet to clinical systems educator Follow-up with clinical systems educator in 1 month Coding Level of Care Code Est Pt Level 1 (34217) Diagnoses Type 1 diabetes E10.9
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
--- OUTSIDE RECORDS SUMMARY | 2025-01-31 19:03 | XMS_ITS | Clinical Summary ---
[facility] Address [address] [place] [address] Care Team Providers Care Car Porter Name Role Phone Unavailable Primary Care Provider [...] of 3 - 19+ 3-dose series) 2012 HIV Screening 02/25/2024 Hepatitis C Screening 02/25/2024 Social Influencers of Health Screening 02/25/2024 Depression Screening 05/18/2024 COVID-19 Vaccine ( - 2023-2 5 season) 2025 Influenza Vaccine (#1) 2025 HIB Vaccines Aged [...]
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
--- OUTSIDE RECORDS SUMMARY | 2025-01-31 19:03 | XMS_ITS | Encounter Summary ---
Author Organization [employer] Address [address] [facility] 7t [place] [address] Care Team Providers Care Parts Designer Name Role Phone Dulce Borja MD Primary Care Provider [phone] Lala Patel RN Unavailable [phone] Ab Henderson RN Unavailable [phone] Olga Muse Unavailable Reason for Referral * Consultation (Routine) - Closed Specialty Diagnoses / Procedures Referred By Contvinnie t Referred To Contact Pharmacy Diagnoses Type 1 diabetes mellitus with hyperglycemia (CMS/HCC) Dulce Borja MD [address] [place] [address] Phone: tel: fax: Referral ID Status Reason Start Date Expiration Date V isits Requested Visits Authorized [id number] Closed Consult and Treat 02/17/2024 02/16/2025 6 6 Encounter Details Date Type Department Care Team (Late st Contact Info) Description 02/17/2024 Orders Only [facility] MEDICINE [address] [place], [place] [phone] Dulce Borja MD [address] [place], [place] [phone] Type 1 diabetes mellitus with hyperglycemia (CMS/HCC) [...] with others, in a hotel, in a care home, living outside on the street, on a [...] Description 02/28/2025 3:45 PM EDT Office Visit [facility] MEDICINE [address] [place], [place] [phone] Dulce Borja MD [address] [place] [address] 05/03/2025 3:30 PM EST Office Visit [facility] OPTOMETRY [address] [place] [address] Zaida Monique, OD [address] [place] [address] Scheduled Referrals Name Type Priority Associated Diagnoses [...] documented as of this encounter Care Teams Parts Designer Relationship Specialty Start Date End Date Dulce Borja MD [address] [place] [address] PCP - General Family Medicine 10/15/23 Lala Patel RN [address] [place] [address] Thermoforming OperatorSql Application Developer 02/02/24 Ab Henderson, CHARLEY [address] [place] [address] Registered Nurse Family Medicine 10/19/24 Olga Muse 10/19/24 documented as of this encounter
--- OUTSIDE RECORDS SUMMARY | 2025-01-31 19:04 | XMS_ITS | Encounter Summary ---
Author Organization [employer] Address [address] [facility] [address] [place] [address] Care Team Providers Care Electronic Security Technician Name Role Phone Dulce Borja MD Primary Care Provider [phone] Lala Patel RN Unavailable [phone] Ab Henderson RN Unavailable [phone] Olga Muse Unavailable Encounter Details Date Type Department Care Team (Late st Contact Info) Description 06/30/2024 Orders Only [facility] MEDICINE [address] [place], [place] [phone] Dulce Borja MD [address] [place], [place] [phone] Chronic pain of both hips (Primary Dx) [...] with others, in a hotel, in a nursing home, living outside on the street, on [...] Description 02/28/2025 3:45 PM EDT Office Visit [facility] [address] [place] [address] Dulce Borja MD [address] [place] [address] 05/03/2025 3:30 PM EST Office Visit [facility]ET[facility] [address] [place] [address] Zaida Monique, OD [address] [place] [address] documented as of this encounter Visit Diagnoses Diagnosis Chronic pain of both hips- Primary documented in this encounter Additional Health Concerns Assessment Noted Time PHQ-9 Depression Total Score: 4 05/16/20 24 4:05 PM EST documented as of this encounter Care Teams Electronic Security Technician Relationship Specialty Start Date End Date Dulce Borja MD [address] [place] [address] PCP - General Family Medicine 10/15/23 Lala Patel RN [address] [place] [address] Neck Band OperatorTechnology Adoption Manager 02/02/24 Ab Henderson RN [address] [place] [address] Registered Nurse Family Medicine 10/19/24 Olga Muse 10/19/24 documented as of this encounter
--- OUTSIDE RECORDS SUMMARY | 2025-01-31 19:04 | XMS_ITS ---
Author Organization [employer] Address [address] [facility] 7t [place] [address] Care Team Providers Care Speech Language Pathologist Travel Name Role Phone Dulce Borja MD Primary Care Provider [phone] Lala Patel RN Unavailable [phone] Ab Henderson RN Unavailable [phone] Olga Muse Unavailable CM Complex Status:Enrolled (Active) Start date:10/19/2024 Enrollment date:10/21/2024 Enrollment reason:ADT Feed Overview ED- Pt went to [facility] ED on 10/18/24. Case Team Name Relationship Phone Ab Henderson RN(Responsible Staff) Registered Jaja anderson [phone] Continued Care and Services Coordination
--- OUTSIDE RECORDS SUMMARY | 2025-01-31 19:04 | XMS_ITS ---
Author Organization [employer] Address [address] [facility] 7t [place] [address] Care Team Providers Care Preassembler Printed Circuit Board Name Role Phone Dulce Borja MD Primary Care Provider [phone] Lala Patel RN Unavailable [phone] Ab Henderson RN Unavailable [phone] Olga Muse Unavailable CHW Complex Status:Enrolled (Active) Start date:10/19/2024 Enrollment date:10/19/2024 Enrollment reason:ADT Feed Overview ED- Pt went [place] [facility] [place]24. Case Team Name Relationship Phone Olga Muse(Responsible Staff) [phone] Continued Care and Services Coordination
--- OUTSIDE RECORDS SUMMARY | 2025-01-31 19:04 | XMS_ITS | Encounter Summary ---
Author Organization [employer] Address [address] 7[address] [place] [address] Care Team Providers Care Vendor Manager Name Role Phone Dulce Borja MD Primary Care Provider [phone] Lala Patel RN Unavailable [phone] Ab Henderson RN Unavailable [phone] Olga Muse Unavailable Reason for Visit * Reason Comments Med Refill Encounter Details Date Type Department Care Team (Late st Contact Info) Description 08/09/2024 Refill [facility] MEDICINE [address] [place], [place] [phone] Jimmie Peter MD [address] [place], [place] [phone] Alcohol use disorder, severe, dependence (CMS/HCC) Social [...] Description 02/28/2025 3:45 PM EDT Office Visit [facility] MEDICINE [address] [place] [address] Dulce Borja MD [address] [place] [address] 05/03/2025 3:30 PM EST Office Visit [facility] OPTOMETRY [address] [place] [address] Zaida Monique, RUPALI [address] [place] [address] documented as of this encounter Visit Diagnoses Diagnosis Alcohol use disorder, severe, dependence (CMS/HCC) documented in this encounter Additional Health Concerns Assessment Noted Time PHQ-9 Depression Total Score: 4 05/16/20 24 4:05 PM EST documented as of this encounter Care Teams Vendor Manager Relationship Specialty Start Date End Date Dulce Borja MD [address] [place] [address] PCP - General Family Medicine 10/15/23 Lala Patel RN [address] [place] [address] Country DirectorSheeter Waxer Operator 02/02/24 Ab Henderson RN [address] [place] [address] Registered Nurse Family Medicine 10/19/24 Olga Muse 10/19/24 documented as of this encounter
--- OUTSIDE RECORDS SUMMARY | 2025-01-31 19:04 | XMS_ITS | Encounter Summary ---
Author Organization [employer] Address 75 [facility] 7 [place] [address] Care Team Providers Care Lead Front End Developer Name Role Phone Dulce Borja MD Primary Care Provider [phone] Lala Patel RN Unavailable [phone] Ab Henderson RN Unavailable [phone] Olga Muse Unavailable Reason for Visit * Reason Onset Date Comments Prior Authorization 11/05/2023 Encounter Details Date Type Department Care Team (Late st Contact Info) Description 11/05/2023 Telephone [facility] MEDICINE [address] [place] [address] Dulce Borja MD [address] [place], [place] [phone] Prior Authorization Social History Tobacco Use Types [...] with others, in a hotel, in a fci, living outside on the street, on a [...] the past 12 months, has t he [employer], gas, oil or water company threatened to [...] Description 02/28/2025 3:45 PM EDT Office Visit [facility] MEDICINE [address] [place], [place] [phone] Dulce Borja MD [address] [place] [address] 05/03/2025 3:30 PM EST Office Visit [facility] OPTOMETRY [address] [place], [place] [phone] Zaida Monique, OD [address] [place] [address] documented as of this encounter Visit Diagnoses Not on filedocumented in this encounter Additional Health Concerns Assessment Noted Time PHQ-9 Depression Total Score: 9 10/15/19 24 11:38 AM EDT documented as of this encounter Care Teams Lead Front End Developer Relationship Specialty Start Date End Date Dulce Borja MD [address] [place] [address] PCP - General Family Medicine 10/15/23 Lala Patel RN [address] [place] [address] High Pressure Boiler OperatorParts Washer 02/02/24 Ab Henderson, CHARLEY [address] [place] [address] Registered Nurse Family Medicine 10/19/24 Olga Muse 10/19/24 documented as of this encounter
--- OUTSIDE RECORDS SUMMARY | 2025-01-31 19:04 | XMS_ITS | Patient Health Record ---
Author Organization [facility] Address [address] [place] [address] Care Team Providers Care Metal Melter Name Role Phone [facility] Provi carli [phone] Danitza Torres Unavailable [phone] Reason For Referral No Information Encounters Encounter Location Date Provider Diagnosis [facility] [address] [place] [address] 09/22/2024 Danitza Torres Plan Of Treatment No Information Insurance Providers Payer Name Payer Address Payer Phone Subscriber Number Group Number Insured Name Patient Relationship to Insured Coverage Start Date Coverage End Date [place] Medicaid C3 [address] [place], [place] [id number] [phone] [id number] Jackson Michaels Self - patient is the insured
--- OUTSIDE RECORDS SUMMARY | 2025-01-31 19:04 | XMS_ITS | Encounter Summary ---
Author Organization [employer] Address [address] [place] [address] Care Team Providers Care Vehicle Damage Appraiser Name Role Phone Dulce Borja MD Primary Care Provider [phone] Lala Patel RN Unavailable [phone] Ab Henderson RN Unavailable [phone] Olga Muse Unavailable Reason for Visit * Reason Comments Care Management C3CM- Follow up call Encounter Details Date Type Department Care Team (Late st Contact Info) Description 01/26/2025 Patient Outreach [facility] MEDICINE [address] [place], [place] [phone] Dulce Borja MD [address] [place], [place] [phone] Care Management (C3CM- Follow up call) Social History Tobacco Use Types Packs/Day Years [...] with others, in a hotel, in a correction, living outside on the street, on a [...] the past 12 months, has t he [employer], gas, oil or water [employer] threatened to shut off services in your [...] AM EDT documented as of this encounter Progress Notes * Ab Henderson RN - 01/26/2025 10:50 AM EDT BRANDON Henderson RN placed outbound call to patient. Patient's name, and address confirmed. Patient states is doing OK with no recent illnesses or emergency room visits. Patient reports that his blood sugar is still a little high, ranging in the 300s. Patient reports compliance to his diabetic m edication. Patient reports that he has an endo appointment scheduled for 01/31/25. Patient reports that endo office has cancelled 2 of his appts. Patient agreed to reschedule missed RV with PCP on 12/06 and new appt scheduled for 02/28 @ 3:45 PM. Pt verbalized understanding and agreed to plan. No further questions or concerns. CM reinforced direct contact information for any additional questions or concerns. Education provided on [facility] located in [facility]. Patient provided with after-hours line for [facility], , which offer night time triage service and option to transfer to business continuity analyst provider if needed. Patient verbalizes understanding, and able to r epeat back to specification writer. A follow up call will be placed within 10 days, patient agrees with plan. documented in this encounter Plan of Treatment Upcoming Encounters Date Type Department Care Team (Late st Contact Info) Description 02/28/2025 3:45 PM EDT Office Visit [facility] MEDICINE [address] [place], [place] [phone] Dulce Borja MD [address] [place] [address] 05/03/2025 3:30 PM EST Office Visit [facility] OPTOMETRY [address] [place], [place] [phone] Zaida Monique, OD [address] [place] [address] documented as of this encounter Visit Diagnoses Not on filedocumented in this encounter Additional Health Concerns Assessment Noted Time PHQ-9 Depression Total Score: 13 025 2:10 PM EDT documented as of this encounter Care Teams Vehicle Damage Appraiser Relationship Specialty Start Date End Date Dulce Borja MD [address] [place] [id number] PCP - General Family Medicine 10/15/23 Lala Patel RN [address] [place] [address] Telegraph MessengerRecovery Collector 02/02/24 Ab Henderson, CHARLEY [address] [place] [address] Registered Nurse Family Medicine 10/19/24 Olga Muse 10/19/24 documented as of this encounter
--- OUTSIDE RECORDS SUMMARY | 2025-01-31 19:04 | XMS_ITS | Encounter Summary ---
Author Organization [employer] Address [address] [place] [address] Care Team Providers Care Honing Machine Try Out Setter Name Role Phone Dulce Borja MD Primary Care Provider [phone] Lala Patel RN Unavailable [phone] Ab Henderson RN Unavailable [phone] Olga Muse Unavailable Encounter Details Date Type Department Care Team (Late st Contact Info) Description 11/16/2023 Orders Only [facility] MEDICINE [address] [place], [place] [phone] Dulce Borja MD [address] [place], [place] [phone] Social History Tobacco Use Types Packs/Day Years [...] with others, in a hotel, in [place] [facility] [place], living outside on the street, on a [...] Description 02/28/2025 3:45 PM EDT Office Visit [facility] MEDICINE [address] [place] [address] Dulce Borja MD [address] [place] [address] 05/03/2025 3:30 PM EST Office Visit [facility] OPTOMETRY [address] [place] [address] Tarka, Zaida, OD [address] [place] [address] documented as of this encounter Visit Diagnoses Not on filedocumented in this encounter Additional Health Concerns Assessment Noted Time PHQ-9 Depression Total Score: 9 10/15/19 24 11:38 AM EDT documented as of this encounter Care Teams Honing Machine Try Out Setter Relationship Specialty Start Date End Date Dulce Borja MD [address] [place] [address] PCP - General Family Medicine 10/15/23 Lala Patel RN [address] [place] [phone] Coal GetterExecutive Secretary 02/02/24 Ab Henderson, RN [address] [facility]. NAT[place]YA Howell [address] Registered Nurse Family Medicine 10/19/24 Olga Muse 10/19/24 documented as of this encounter
== END 2025-01-31 16:49 | disposition home or self-care (01) ==
LOC: HO.ENCR 16:07
PROVIDERS: PCP Family Medicine; Visit Provider Registered Nurse Diabetes Educator
DX: E10.9 Type 1 diabetes mellitus without complications (principal)

== ENCOUNTER → 2025-01-31 16:06 | Outpatient (BNVA) | payer MEDICAID, SELFPAY | PROVIDERS: PCP Family Medicine; Visit Provider Registered Nurse Diabetes Educator | DX: E10.9 Type 1 diabetes mellitus without complications (principal) | CPT/HCPCS: 99211 ==

== ENCOUNTER 2025-02-06 15:43 | Outpatient (AMB) | payer MEDICAID, SELFPAY ==
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
[2025-02-06 15:48] VITALS: BP 110/64; PULSE 109; O2SAT 98; BMI 21.9
[2025-02-06 15:58] LABS: Glucose, Whole Blood 429 mg/dL (60-115)
--- OUTSIDE RECORDS SUMMARY | 2025-02-06 17:58 | XMS_ITS | Clinical Summary ---
Author kj
== END 2025-02-06 16:12 | disposition home or self-care (01) ==
LOC: HO.ENCR 15:43
PROVIDERS: PCP Family Medicine; Visit Provider Internal Medicine Endocrinology, Diabetes & Metabolism
DX: E10.9 Type 1 diabetes mellitus without complications (principal)
CPT/HCPCS: 99214

== ENCOUNTER → 2025-02-06 15:43 | Outpatient (BNVA) | payer MEDICAID, SELFPAY | PROVIDERS: PCP Family Medicine; Visit Provider Internal Medicine Endocrinology, Diabetes & Metabolism | DX: E10.9 Type 1 diabetes mellitus without complications (principal) | CPT/HCPCS: 82947; 83036; 99212 ==